=== PATIENT | male | born 1945 | race Caucasian/White ===

== ENCOUNTER 2017-02-25 10:19 | Emergency (ER) | payer MEDICARE ==
[2017-02-25 11:26] VITALS: BP 123/71
--- NOTE | 2017-02-26 08:18 | ED ---
Lower Extremity - HPI Summary HPI Summary: Patient is an otherwise healthy 72 yo M who presents to ED with CC of leg numbness and weakness. He states he has seen a neurologist for this twice and has had an MRI, CT and nerve conduction studies performed. He is not a diabetic. He is healthy and does not smoke. The leg weakness began several months ago, progressed to numbness and now is constant beginning in his toes and radiating to above the knee. Denies any other symptoms or complaints. He was told by the neurologist to be seen in the ED if symptoms become worse and obtain a second opinion. He has an appt next week with the neurologist as well. He has not taken any medications and denies allergies. - History of Current Complaint Chief Complaint: EDExtremityLower Stated Complaint: FEET/TOES NUMBNESS-WEAKNESS Time Seen by Provider: 02/25/17 10:55 Hx Obtained From: Patient Mechanism Of Injury: Unknown Severity Initially: Moderate Severity Currently: Moderate Pain Intensity: 0 Pain Scale Used: 0-10 Numeric Timing: Constant Location: Is Discrete @ - bilateral lower extremities Associated Signs And Symptoms: Positive: Weakness Aggravating Factor(s): Standing, Ambulation Alleviating Factor(s): Rest Able to Bear Weight: Yes - Risk Factors Gout Risk Factors: Age Over 40, Male DVT Risk Factors: Negative Septic Arthritis Risk Factor: Extremes of Age - Allergies/Home Medications Allergies/Adverse Reactions: Allergies Allergy/AdvReac Type Severity Reaction Status Date / Time No Known Allergies Allergy Verified 09/04/15 12:19 PMH/Surg Hx/FS Hx/Imm Hx Previously Healthy: Yes - Immunization History Hx Pertussis Vaccination: No Immunizations Up to Date: Unable to Obtain/Confirm Infectious Disease History: Denies: Traveled Outside the [place] in Last 30 Days - Social History Occupation: Employed Full-time Lives: With Family Alcohol Use: Occasionally Hx Substance Use: No Substance Use Type: Reports: None Hx Tobacco Use: No Smoking Status (MU): Never Smoked Tobacco Review of Systems Constitutional: Negative Eyes: Negative Cardiovascular: Negative Respiratory: Negative Positive: no symptoms reported, see HPI Skin: Negative Positive: Weakness, Paresthesia, Numbness Psychological: Normal All Other Systems Reviewed And Are Negative: Yes Physical Exam Triage Information Reviewed: Yes Vital Signs On Initial Exam: Initial Vitals Temp Pulse Resp BP Pulse Ox 97.5 F 64 18 134/75 100 02/25/17 10:20 02/25/17 10:20 02/25/17 10:20 02/25/17 10:20 02/25/17 10:20 Vital Signs Reviewed: Yes Appearance: Positive: Well-Appearing, Well-Nourished Skin: Positive: Warm, Skin Color Reflects Adequate Perfusion Head/Face: Positive: Normal Head/Face Inspection Eyes: Positive: EOMI, REN, Conjunctiva Clear Neck: Positive: Supple, No Lymphadenopathy Respiratory/Lung Sounds: Positive: Clear to Auscultation, Breath Sounds Present Cardiovascular: Positive: Normal, RRR, Pulses are Symmetrical in both Upper and Lower Extremities Musculoskeletal: Positive: Strength/ROM Intact, Other - weakness, numbness and tingling in bilateral lower extremities Neurological: Positive: Sensory/Motor Intact, Alert, Oriented to Person Place, Time Psychiatric: Positive: Normal AVPU Assessment: Alert Diagnostics - Vital Signs Vital Signs Temp Pulse Resp BP Pulse Ox 02/25/17 11:25 97.3 F 58 16 123/71 02/25/17 10:20 97.5 F 64 18 134/75 100 - Laboratory Lab Statement: Any lab studies that have been ordered have been reviewed, and results considered in the medical decision making process. Lower Extremity Course/Dx - Course Course Of Treatment: Patient encouraged to follow up with second opinion to our neurologist. Dr. Perez referral given. It was explained to the patient that we would not be able to further evaluate this chronic issue as he has already had multiple tests, scans and blood work performed which does not show a reason for his symptoms. He has close follow up and is seeing his neurologist this week. He is OK for discharge and understands plan. - Diagnoses Differential Diagnosis/HQI/PQRI: Positive: Fracture (Closed), Fracture (Open), Sprain, Strain Provider Diagnoses: Paresthesia Discharge - Discharge Plan Condition: Stable Disposition: HOME Referrals: Raul Chaney MD [Primary Care Provider] - Olu Perez MD [Medical Doctor] - Additional Instructions: Follow up with Dr. Perez
== END 2017-02-25 11:30 | disposition home or self-care (01) ==
LOC: ED 10:19
DX: R20.2 Paresthesia of skin (principal); M62.81 Muscle weakness (generalized)
CPT/HCPCS: 99281

== ENCOUNTER 2017-04-04 12:58 | Emergency (ER) | payer MEDICARE ==
[2017-04-04] MEDS ORDERED: Aspirin Low Dose CHEW TAB* 81 MG PO ONE (13:26)
[2017-04-04 14:08] LABS: Hematocrit 41 % (42-52); Hemoglobin 13.9 g/dl (14.0-18.0); Mean Corpuscular HGB Conc 34 g/dl (31-36); Mean Corpuscular Hemoglobin 31 pg (27-31); Mean Corpuscular Volume 92 fL (80-94); Mean Platelet Volume 8 um3 (7.4-10.4); Red Blood Count 4.41 10^6/ul (4.0-5.4); Red Cell Distribution Width 13 % (10.5-15); White Blood Count 4.6 10^3/ul (3.5-10.8)
--- NOTE | 2017-04-04 14:13 | RAD ---
HISTORY: Weakness COMPARISONS: February 03, 2011 VIEWS:1: Single frontal portable view of the chest at 1:55 PM FINDINGS: LINES AND TUBES: None. CARDIOMEDIASTINAL SILHOUETTE: The cardiomediastinal silhouette is normal for portable technique. PLEURA: The costophrenic angles are sharp. No pleural abnormalities are noted. LUNG PARENCHYMA: The lungs are clear. ABDOMEN: The upper abdomen is clear. There is no subphrenic gas. BONES AND SOFT TISSUES: Degenerative changes are noted of the spine IMPRESSION: NO ACTIVE CARDIOPULMONARY DISEASE.
[2017-04-04 14:21] LABS: Albumin 4.1 g/dL (3.2-5.2); BUN/Creatinine Ratio 19.4 (8-20); Calcium 9.4 mg/dL (8.6-10.3); EGFR African American 102.4 (>60); EGFR Non-African American 79.6 (>60); Globulin 2.4 g/dL (2-4); Potassium 3.9 mmol/L (3.5-5.0); Total Bilirubin 0.7 mg/dL (0.2-1.0); Total Protein 6.5 g/dL (6.4-8.9)
[2017-04-04 14:56] LABS: TSH (Thyroid Stimulating Horm) 2.04 mcIU/mL (0.34-5.60)
[2017-04-04 15:03] LABS: Free T4 0.99 ng/dL (0.61-1.12)
[2017-04-04] MEDS ORDERED: Dexamethasone IV* 4 MG/ML 1 ML (4 MG) IV SLOW PU ONE (15:10)
[2017-04-04] MEDS ORDERED: Dexamethasone IV* 4 MG/ML 1 ML (4 MG) ONE (15:19)
[2017-04-04 15:51] VITALS: BP 99/64
--- NOTE | 2017-04-04 17:11 | ED ---
Donal Harris Benjamin, scribed for Luis Alberto Rodríguez MD on 04/04/17 at 1358 . 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 Pt was referred by his neurologist Dt. Haddad. Pt reports numbness, tightness, burning and stabbing sensation in his legs. His legs are also weak. Right leg is weaker than the left. Pt denies CP, urinary or bowel incontinence. No pain anywhere. Pt denies pain when moving his legs. - History of Current Complaint Chief Complaint: EDNeurologicalDeficit Stated Complaint: LEG NUMBNESS Time Seen by Provider: 04/04/17 13:23 Hx Obtained From: Patient, Family/Stage Director Onset/Duration: Gradual Onset Onset Severity: Mild Current Severity: Mild Neurological Deficit Location: RLE - tremors, LLE - tremors Pain Intensity: 0 Character: Motor Weakness - RLE, Other: - tremors on bilateral LE Aggravating: Nothing Alleviating: Nothing Associated Signs and Symptoms: Positive: Weakness - RLE - Allergy/Home Medications Allergies/Adverse Reactions: Allergies Allergy/AdvReac Type Severity Reaction Status Date / Time No Known Allergies Allergy Verified 04/04/17 14:00 PMH/Surg Hx/FS Hx/Imm Hx Endocrine/Hematology History: Denies: Hx Diabetes Cardiovascular History: Denies: Hx Hypertension, Hx Pacemaker/ICD History: Denies: Hx Renal Disease Sensory History: Reports: Hx Hearing Aid Psychiatric History: Denies: Hx Panic Disorder - Surgical History Surgery Procedure, Year, and Place: HERNIA. APPENDIX. BILATERAL CATARACTS Infectious Disease History: Denies: Traveled Outside the [place] in Last 30 Days - Family History Known Family History: Positive: Hypertension - Social History Occupation: Retired Lives: With Family Alcohol Use: Occasionally Hx Substance Use: No Substance Use Type: Reports: None Hx Tobacco Use: No Smoking Status (MU): Never Smoked Tobacco Review of Systems Constitutional: Negative Eyes: Negative ENT: Negative Cardiovascular: Negative Respiratory: Negative Gastrointestinal: Negative Genitourinary: Negative Musculoskeletal: Negative Skin: Negative Neurological: Other - tremors in bilateral LE Positive: Weakness - RLE Psychological: Normal All Other Systems Reviewed And Are Negative: Yes Physical Exam Triage Information Reviewed: Yes Vital Signs On Initial Exam: Initial Vitals Temp Pulse Resp BP Pulse Ox 97.5 F 65 14 130/73 100 04/04/17 13:03 04/04/17 13:03 04/04/17 13:03 04/04/17 13:03 04/04/17 13:03 Vital Signs Reviewed: Yes Appearance: Positive: Well-Appearing, No Pain Distress, Well-Nourished Skin: Positive: Warm, Skin Color Reflects Adequate Perfusion, Dry Head/Face: Positive: Normal Head/Face Inspection. Negative: Temporal Artery Tenderness, TMJ Tenderness Eyes: Positive: EOMI, REN ENT: Positive: Normal ENT inspection, Hearing grossly normal Neck: Positive: Supple, Nontender Respiratory/Lung Sounds: Positive: Clear to Auscultation, Breath Sounds Present. Negative: Rales, Rhonchi Cardiovascular: Positive: RRR, Pulses are Symmetrical in both Upper and Lower Extremities. Negative: Murmur, Leg Edema Left, Leg Edema Right Abdomen Description: Positive: Nontender, Soft Bowel Sounds: Positive: Present Musculoskeletal: Negative: Strength/ROM Intact - 4+/5 strength on right leg. Neurological: Positive: Alert, Oriented to Person Place, Time, Other - involuntary tremors on bilateral LE. Negative: Sensory/Motor Intact - Diminished sensations below his umbilicus bilaterally. Psychiatric: Positive: Affect/Mood Appropriate Diagnostics - Vital Signs Vital Signs Temp Pulse Resp BP Pulse Ox 04/04/17 13:30 70 138/91 99 04/04/17 13:25 64 100 04/04/17 13:24 144/78 04/04/17 13:03 97.5 F 65 14 130/73 100 - Laboratory Lab Results: Lab Results 04/04/17 04/04/17 04/04/17 Range/Units 13:45 13:45 13:45 WBC 4.6 (3.5-10.8) 10^3/ul RBC 4.41 (4.0-5.4) 10^6/ul Hgb 13.9 L (14.0-18.0) g/dl Hct 41 L (42-52) % MCV 92 (80-94) fL MCH 31 (27-31) pg MCHC 34 (31-36) g/dl RDW 13 (10.5-15) % Plt Count 183 (150-450) 10^3/ul MPV 8 (7.4-10.4) um3 Neut % (Auto) 72.4 (38-83) % Lymph % (Auto) 19.3 L (25-47) % [place]ry % (Auto) 6.6 (1-9) % Eos % (Auto) 1.2 (0-6) % Baso % (Auto) 0.5 (0-2) % Absolute Neuts (auto) 3.3 (1.5-7.7) 10^3/ul Absolute Lymphs (auto) 0.9 L (1.0-4.8) 10^3/ul Absolute Monos (auto) 0.3 (0-0.8) 10^3/ul Absolute Eos (auto) 0.1 (0-0.6) 10^3/ul Absolute Basos (auto) 0 (0-0.2) 10^3/ul Absolute Nucleated RBC 0 10^3/ul Nucleated RBC % 0 Sodium 136 (133-145) mmol/L Potassium 3.9 (3.5-5.0) mmol/L Chloride 103 (101-111) mmol/L Carbon Dioxide 27 (22-32) mmol/L Anion Gap 6 (2-11) mmol/L BUN 18 (6-24) mg/dL Creatinine 0.93 (0.67-1.17) mg/dL Est GFR ( Amer) 102.4 (>60) Est GFR (Non-Af Amer) 79.6 (>60) BUN/Creatinine Ratio 19.4 (8-20) Glucose 107 H (70-100) mg/dL Lactic Acid 1.5 (0.5-2.0) mmol/L Calcium 9.4 (8.6-10.3) mg/dL Total Bilirubin 0.70 (0.2-1.0) mg/dL AST 14 (13-39) U/L ALT 20 (7-52) U/L Alkaline Phosphatase 55 (34-104) U/L Troponin I 0.00 (<0.04) ng/mL Total Protein 6.5 (6.4-8.9) g/dL Albumin 4.1 (3.2-5.2) g/dL Globulin 2.4 (2-4) g/dL Albumin/Globulin Ratio 1.7 (1-3) TSH 2.04 (0.34-5.60) mcIU/mL Free T4 0.99 (0.61-1.12) ng/dL Result Diagrams: 04/04/17 13:45 04/04/17 13:45 Lab Statement: Any lab studies that have been ordered have been reviewed, and results considered in the medical decision making process. - Radiology CXR Xray Interpretation: No Acute Changes Radiology Interpretation Completed By: Radiologist - EKG 1311. Cardiac Rate: NL - 62bpm EKG Rhythm: Sinus Rhythm EKG Interpretation: NO STEMI Course/Dx - Course Course Of Treatment: Reviewed pts medication and allergy lists. Blood pressure noted. Pt talked to Dr. Chambers yesterday, and Dr. Chambers wants the pt transferred to [facility]. Discussed with Dr. Chambers (Neurosurgery) at 15 :18. Spoke to Dr. Issa Alonzo (Neurosurgeon at [facility])'s Nurse for transfer to [facility] ED. After Decadron IV is given. - Diagnoses Provider Diagnoses: Thoracic spine tumor, Spinal cord compression - Critical Care Time Critical Care Time: 30-74 min - 45 minutes - spinal cord compression, emergent steroid injection, Discharge - Discharge Plan Condition: Good Disposition: TRANS HIGHER LVL OF CARE FAC The documentation as recorded by the Donal torres Benjamin accurately reflects the service I personally performed and the decisions made by , Luis Alberto Rodríguez MD.
== END 2017-04-04 17:55 | disposition short-term general hospital (02) ==
LOC: ED 12:58
DX: G95.9 Disease of spinal cord, unspecified (principal); R53.1 Weakness; G95.20 Unspecified cord compression
CPT/HCPCS: 36415; 71010; 80053; 83605; 84439; 84443; 84484; 85025; 87040; 93005; 96374; 96375; 99283; J1100

== ENCOUNTER 2019-08-05 13:36 | Emergency (ER) | payer MEDICARE ==
[2019-08-05 14:02] VITALS: BP 114/74
--- NOTE | 2019-08-05 14:11 | UC ---
Throat Pain/Nasal Nathaniel HPI - HPI Summary HPI Summary: 74-year-old male presents with 2 week history of sore throat, bilateral ear fullness, and occasional dry nonproductive cough. Associated with occasional headache. States symptoms have been progressively worsening especially over the last 2-3 days. Denies fever, chills, sinus pressure, tinnitus, vertigo, dysphagia, chest pain, shortness of breath, abdominal pain, nausea, or vomiting. - History of Current Complaint Chief Complaint: UCRespiratory Stated Complaint: THROAT,EAR PRESSURE Time Seen by Provider: 08/05/19 13:42 Hx Obtained From: Patient Pain Intensity: 5 - Allergies/Home Medications Allergies/Adverse Reactions: Allergies Allergy/AdvReac Type Severity Reaction Status Date / Time No Known Allergies Allergy Verified 08/05/19 13:49 Home Medications: Home Medications DULoxetine DR CAP* [Cymbalta CAP*] 20 mg PO DAILY 08/05/19 [History Confirmed ] Gabapentin CAP(*) [Neurontin 300 CAP(*)] 300 mg PO QID 08/05/19 [History Confirmed 08/05/19] Multivitamin [Multivitamins] 1 cap PO DAILY 08/05/19 [History Confirmed 08/05/19 ] Psyllium VERONICA* [Metamucil VERONICA*] 1 pkt PO DAILY 08/05/19 [History Confirmed ] Tamsulosin CAP* [Flomax CAP*] 0.4 mg PO DAILY 08/05/19 [History Confirmed ] Vitamin A/Vit C/Zinc/Propolis [Zinc 15 mg Lozenges] 15 mg PO PRN 08/05/19 [ History] PMH/Surg Hx/FS Hx/Imm Hx GI/ History: Other - BPH Psychological History: Depression - Surgical History Surgical History: Yes Surgery Procedure, Year, and Place: HERNIA; APPENDIX; BILATERAL CATARACTS; CLOGGED TEAR DUCTS 2017; TSP-04/2017; LUMBAR SURGERY 01/2018 AND 07/2018 - Family History Known Family History: Positive: Hypertension - Social History Occupation: Retired Lives: With Family Alcohol Use: Occasionally Substance Use Type: None Smoking Status (MU): Never Smoked Tobacco Review of Systems All Other Systems Reviewed And Are Negative: Yes Constitutional: Negative: Fever, Chills Skin: Negative: Rash Eyes: Negative: Drainage, Eye Redness ENT: Positive: Sore Throat, Other. Negative: Nasal Discharge, Sinus Congestion , Sinus Pain/Tenderness Respiratory: Positive: Cough. Negative: Shortness Of Breath Cardiovascular: Negative: Palpitations, Chest Pain Gastrointestinal: Negative: Abdominal Pain, Vomiting, Diarrhea, Nausea Genitourinary: Positive: Negative Musculoskeletal: Positive: Negative Neurological: Positive: Negative Is Patient Immunocompromised?: No Physical Exam - Summary Physical Exam Summary: GENERAL APPEARANCE: Alert and cooperative older adult male who appears to be in no acute distress. EYES: Conjunctiva clear. No drainage. EARS: External auditory canals and tympanic membranes clear, hearing grossly intact. NOSE: Mild nasal congestion. No nasal discharge. THROAT: Pharyngeal cobblestoning with post-nasal drip. No tonsilar inflammation , swelling, exudate, or lesions. Uvula midline. NECK: Neck supple, non-tender without lymphadenopathy. CARDIAC: Normal S1 and S2. No S3, S4 or murmurs. Rhythm is regular. There is no peripheral edema, cyanosis or pallor. Extremities are warm and well perfused. Capillary refill is less than 2 seconds. Peripheral pulses intact. LUNGS: Clear to auscultation without rales, rhonchi, wheezing or diminished breath sounds. ABDOMEN: Positive bowel sounds. Soft, nondistended, nontender. No guarding or rebound. No masses or hepatosplenomegally. MUSKULOSKELETAL: ROM intact to all extremities. No joint erythema or tenderness. Normal muscular development. Normal gait. SKIN: Skin normal color, texture and turgor with no lesions or eruptions. Triage Information Reviewed: Yes Vital Signs: Initial Vital Signs Temp 97.8 F 08/05/19 13:54 Pulse 58 08/05/19 13:54 Resp 16 08/05/19 13:54 BP 114/74 08/05/19 13:54 Pulse Ox 98 08/05/19 13:54 Vital Signs Reviewed: Yes Throat Pain/Nasal Course/Dx - Course Course Of Treatment: 74-year-old male presents with 2 week history of sore throat, bilateral ear fullness, and occasional dry nonproductive cough. Associated with occasional headache. States symptoms have been progressively worsening especially over the last 2-3 days. Denies fever, chills, sinus pressure, tinnitus, vertigo, dysphagia, chest pain, shortness of breath, abdominal pain, nausea, or vomiting. Afebrile. Vital signs stable. Patient had mild nasal congestion, normal bilateral TMs, pharyngeal cobblestoning with postnasal drip, no tonsillar swelling or exudate, no cervical lymphadenopathy, clear bilateral breath sounds, and otherwise unremarkable exam. Discussed with patient that his symptoms are consistent with an upper respiratory infection and considering the duration and worsening of his symptoms will treat with a course of amoxicillin 500 mg twice a day 10 days to cover for a secondary bacterial infection as well as recommend symptomatic treatment at this time. He is to follow-up with his primary care provider in 3-5 days if symptoms are not improving. Anticipatory guidance and warning symptoms were reviewed with the patient. Verbalizes understanding and agrees with plan of care. - Differential Dx/Diagnosis Differential Diagnosis/HQI/PQRI: Pharyngitis, Sinusitis, Tonsillitis, URI Provider Diagnosis: URI (upper respiratory infection) Discharge ED - Sign-Out/Discharge Documenting (check all that apply): Patient Departure All imaging exams completed and their final reports reviewed: No Studies - Discharge Plan Condition: Stable Disposition: HOME Prescriptions: Amoxicillin PO (*) [Amoxicillin 500 MG CAP*] 500 mg PO Q12H 10 Days #20 cap Fluticasone NASAL SPRAY 50MCG* [Flonase NASAL SPRAY 50MCG*] 2 spray BOTH NARES DAILY #1 btl Patient Education Materials: Upper Respiratory Infection (ED) Referrals: Raul Chaney MD [Primary Care Provider] - 3 Days (Follow up in 3-5 days if no improvement in symptoms.) Additional Instructions: Your history and exam are consistent with an upper respiratory infection. Considering the duration and worsening of your symptoms we will start you on an antibiotic for the infection. Start amoxicillin 500 mg 1 capsule twice a day for 01 days. Be sure to finish the entire course even if feeling better. Use fluticasone (Flonase) nasal spray 2 sprays each nostril once daily. Take over the counter acetaminophen (Tylenol) according to directions as needed for pain or fever. Use salt water gargles several times a day if you have a sore throat. You may also use Chloraseptic spray or Cepacol lonzenges according to directions which contain a numbing medication and can provide some temporary relief from your sore throat. Follow up with your primary care provider in 3-5 days if symptoms persist. Seek immediate medical attention in the emergency room if you have fever greater than 100.5 F despite taking acetaminophen, have chest pain, difficulty breathing, are unable to swallow, or have any worsening of symptoms. - Billing Disposition and Condition Condition: STABLE Disposition: Home
== END 2019-08-05 14:41 | disposition home or self-care (01) ==
LOC: UCCORT 13:36
DX: J06.9 Acute upper respiratory infection, unspecified (principal); F32.9 Major depressive disorder, single episode, unspecified; Z79.899 Other long term (current) drug therapy
CPT/HCPCS: 99211; G0463

== ENCOUNTER 2024-05-14 05:49 | Observation (INO) ==
[~2024-05-14 05:49] MED LIST: NS 0.45% 1000 ml BAG 1,000 ML IV SCH; Naloxone 0.4 mg VIAL 0.4 mg/ml 1 ml VIAL IV PRN; Ondansetron 4 mg VIAL 2 MG/ML 2 ml VIAL IV PRN; fentaNYL 100 mcg/2 ml 50 MCG/ML VIAL IV PRN
[2024-05-14] MEDS ORDERED: Tranexamic Acid 1 GM/100ML BAG 2,000 MG/200 ML BAG IV ONE (06:13)
[2024-05-14] MEDS ORDERED: ceFAZolin 2 GM PREMIX 2 GM/50 ML BAG ONE (06:13)
[2024-05-14 06:27] LABS: Rapid COVID-19 Molecular Undetected (Undetected)
[2024-05-14] MEDS ORDERED: Ondansetron 4 mg VIAL 2 MG/ML 2 ml VIAL ONE (06:33)
[2024-05-14] MEDS ORDERED: fentaNYL 100 mcg/2 ml 50 MCG/ML VIAL ONE ×3 (06:33→07:21)
[2024-05-14] MEDS ORDERED: Lidocaine 2% PF 5 ML VIAL ONE (06:33)
[2024-05-14] MEDS ORDERED: Dexamethasone IV 4 MG/ML VIAL 1 ml VIAL ONE (06:33)
[2024-05-14] MEDS ORDERED: Midazolam 2 mg/2 ml VIAL 1 mg/ml 2 ml VIAL (2 mg) ONE ×3 (06:33→07:21)
[2024-05-14] MEDS ORDERED: ROPIVACAINE 5 MG/ML 30 ML BTL (0.5%) ONE ×2 (06:53→07:17)
[2024-05-14] MEDS ORDERED: Propofol 10 MG/ML 20 ML BTL ONE ×2 (09:05→09:41)
[2024-05-14] MEDS ORDERED: Calcium Carb (TUMS) 500 mg CHEW TAB PO PRN (10:10)
[2024-05-14] MEDS ORDERED: Ondansetron 4 mg VIAL 2 MG/ML 2 ml VIAL IV PRN (10:10)
[2024-05-14] MEDS ORDERED: Morphine 2 MG/ML SYRINGE IV PRN (10:10)
[2024-05-14] MEDS ORDERED: Ondansetron ODT 4 mg TAB 4 MG TAB PO PRN (10:10)
[2024-05-14] MEDS ORDERED: Magnesium Hydroxide LIQ 30 ML UDC PO PRN (10:10)
[2024-05-14] MEDS ORDERED: Lactulose 30 ml UDC PO PRN (10:10)
[2024-05-14] MEDS: Lactated Ringers 1000 ml BAG 1,000 ML IV SCH ×2 (12:08→12:37)
[2024-05-14] MEDS: Buffered Lidocaine 1% SYRIN 1 ml INTRADERM ONE (12:36)
[2024-05-14] MEDS: Acetaminophen IV 1 GM/100ML 1,000 MG/100 ML BAG IV ONE (12:36)
[2024-05-14] MEDS: ceFAZolin 2 GM PREMIX 2 GM/50 ML BAG IV SCH (16:29)
[2024-05-14] MEDS: Magnesium Hydroxide LIQ 30 ML UDC PO SCH (22:56)
[2024-05-14] MEDS: [UNRECOGNIZED DRUG - REMARK] PO SCH (23:50)
[2024-05-15 06:32] LABS: Hemoglobin 10.7 g/dL (13.2-16.3); Mean Platelet Volume 7.8 fL (7.5-11.2); Platelet Count 180 10^3/uL (150-450)
[2024-05-15 06:53] LABS: Calcium 8.3 mg/dL (8.6-10.3); Creatinine, Serum 1.07 mg/dL (0.67-1.17); Potassium 4.5 mmol/L (3.5-5.0); eGFR CKD-EPI 70.2 (>60)
[2024-05-15] MEDS: DULoxetine DR 60 mg CAP PO SCH (09:48)
[2024-05-15] MEDS: Vitamin THERAPEUTIC TAB PO SCH (09:49)
[2024-05-15 11:03] VITALS: BP 116/73
== END 2024-05-15 14:00 | disposition home or self-care (01) ==
LOC: SSU 05:49 → OR 05:49
PROVIDERS: ADMIT Orthopaedic Surgery Adult Reconstructive Orthopaedic Surgery; ATTEND Orthopaedic Surgery Adult Reconstructive Orthopaedic Surgery